=== PATIENT | male | born 1985 | race Caucasian/White ===

== ENCOUNTER → 2020-08-30 08:50 | Outpatient (BNVA) | payer OTHER, SELFPAY | PROVIDERS: Visit Provider Physician Assistant Medical | DX: R10.9 Unspecified abdominal pain (principal); S22.31XD Fracture of one rib, right side, subsequent encounter for fracture with routine healing; X50.1XXD Overexertion from prolonged static or awkward postures, subsequent encounter | CPT/HCPCS: 71101; 99203 ==